=== PATIENT | male | born 1990 | race Caucasian/White ===

== ENCOUNTER 2022-06-06 05:00 | Emergency (ER) | payer OTHER ==
[~2022-06-06] VITALS: Ht 182.9 cm; Wt 90.7 kg
[2022-06-06 05:03] VITALS: BP 118/61
--- NOTE | 2022-06-06 05:06 | NUR ---
PT TAKEN TO BED 3
--- NOTE | 2022-06-06 05:30 | NUR ---
Patient A/Ox4, resting comfortably in bed, no c/o pain or s/s of discomfort, chest rise and fall symmetrical.
[2022-06-06] MEDS ORDERED: OFLO5SOL27 LEFT EAR (05:33)
[2022-06-06] MEDS ORDERED: NAPR-54 PO (05:33)
[2022-06-06 05:47] VITALS: BP 128/76
== END 2022-06-06 05:51 | disposition home or self-care (01) ==
LOC: MED 05:00
DX: H60.502 Unspecified acute noninfective otitis externa, left ear (principal); F17.210 Nicotine dependence, cigarettes, uncomplicated
CPT/HCPCS: 99283

== ENCOUNTER 2022-12-29 15:33 | Emergency (ER) | payer OTHER ==
[~2022-12-29] VITALS: Ht 182.9 cm; Wt 94.8 kg
[~2022-12-29 15:33] MED LIST: NAPR-54 PO; OFLO5SOL27 LEFT EAR
[2022-12-29 15:37] VITALS: BP 122/85
--- NOTE | 2022-12-29 15:41 | NUR ---
PT AMBULATED TO BED 7
--- NOTE | 2022-12-29 15:45 | NUR ---
MD ESPINOZA AT BEDSIDE FOR EVALUATION
--- NOTE | 2022-12-29 15:58 | NUR ---
32YO MALE PT C/O PRESSURED ABD PAIN AND DIARRHEA+blood X1WEEK. REPORTS SUDDEN INTERMITTENT DARK AND BRIGHT RED STOOL. STATES PRESSURE RELIEF AFTER HAVING BOWEL MOVEMENT. ABD NON TENDER OR DISTENDED. DENIES RECENT CHANGE IN DIET, N/V , FEVER, CHILLS OR RELIEF AFTER PEPCID. PT AAOX4, HOB POSITIONED PER COMFORT. HX: DENIES NKA
--- NOTE | 2022-12-29 16:21 | NUR ---
pt ambulated to restroom
--- NOTE | 2022-12-29 16:25 | NUR ---
pt ambulated back to room
[2022-12-29 16:52] LABS: BASOPHILS % (AUTO) 0.3 % (0.0-2.0); EOSINOPHILS # (AUTO) 0.5 K/uL (0-0.4); EOSINOPHILS % (AUTO) 3.9 % (0.0-4.0); HEMATOCRIT 42.3 % (36-52); HEMOGLOBIN 14.4 g/dL (12.0-18.0); LYMPHOCYTES # (AUTO) 3.2 K/uL (2.0-11.5); LYMPHOCYTES % (AUTO) 25.5 % (20.5-51.1); MEAN CORPUSCULAR HEMOGLOBIN 30 pg (27-31); MEAN CORPUSCULAR HGB CONC 34 g/dL (33-37); MEAN CORPUSCULAR VOLUME 86.6 fL (80-94); MONOCYTES # (AUTO) 1.8 K/uL (0.8-1.0); MONOCYTES % (AUTO) 14.4 % (1.7-9.3); NEUTROPHILS # (AUTO) 7.1 K/uL (1.8-7.7); NEUTROPHILS % (AUTO) 55.9 % (42.2-75.2); PLATELET COUNT (AUTO) 422 K/uL (140-450); RED BLOOD CELL COUNT(AUTO) 4.89 MIL/uL (4.20-6.10); RED CELL DISTRIBUTION WIDTH 13.4 % (11.6-13.7); WHITE BLOOD COUNT (AUTO) 12.7 K/uL (4.8-10.8)
[2022-12-29 17:00] LABS: ANION GAP 13.5 (8-16); CARBON DIOXIDE 25.2 mmol/L (21-32); CREATININE 1.2 mg/dL (0.6-1.3); POTASSIUM 3.7 mmol/L (3.5-5.1)
[2022-12-29 17:37] VITALS: BP 126/88
--- NOTE | 2022-12-29 17:37 | NUR ---
Patient discharged with v/s stable. Written and verbal after care instructions FOR DIARRHEA given and explained. Patient verbalized understanding. Ambulatory with steady gait. All questions addressed prior to discharge. Advised to follow up with PMD.
== END 2022-12-29 17:37 | disposition home or self-care (01) ==
LOC: MED 15:33
DX: R19.7 Diarrhea, unspecified (principal); Z79.899 Other long term (current) drug therapy
CPT/HCPCS: 36415; 80048; 85025; 99283

== ENCOUNTER 2023-01-21 11:11 | Emergency (ER) | payer OTHER ==
[~2023-01-21] VITALS: Ht 182.9 cm; Wt 93.0 kg
[2023-01-21 11:21] VITALS: BP 135/102
--- NOTE | 2023-01-21 11:29 | NUR ---
PT WALKED OUT OF LOBBY AT THIS TIME, DID NOT NOTIFY STAFF
[2023-01-21] MEDS ORDERED: CIPR500T4 PO (12:25)
[2023-01-21] MEDS ORDERED: IMO2 PO (12:25)
--- NOTE | 2023-01-21 12:59 | NUR ---
PT CALLED IN AND OUTSIDE OF LOBBY. NO ANSWER
[2023-01-21 13:23] VITALS: BP 131/74
--- NOTE | 2023-01-21 13:23 | NUR ---
Patient discharged with v/s stable. Written and verbal after care instructions ABOUT VIRAL GASTROENTERITIS given and explained. Patient alert, oriented and verbalized understanding of instructions. Ambulatory with steady gait. All questions addressed prior to discharge. ID band removed. Patient advised to follow up with PMD. Rx of CIPRO AND LOPERAMIDE given. Patient educated on indication of medication including possible reaction and side effects. Opportunity to ask questions provided and answered.
== END 2023-01-21 13:23 | disposition home or self-care (01) ==
LOC: MED 11:11
DX: A09 Infectious gastroenteritis and colitis, unspecified (principal); Z79.899 Other long term (current) drug therapy
CPT/HCPCS: 99283

== ENCOUNTER 2023-12-04 15:08 | Emergency (ER) | payer MEDICAID, OTHER ==
[~2023-12-04] VITALS: Ht 182.9 cm; Wt 79.4 kg
[~2023-12-04 15:08] MED LIST changes: +CIPR500T4 PO; +IMO2 PO
[2023-12-04 15:11] VITALS: BP 126/94; PULSE 98; RESP 18; TEMP 98; O2SAT 98
[2023-12-04] MEDS: LOPERAMIDE 2 MG CAP PO ONE (15:57)
[2023-12-04] MEDS: DICYCLOMINE HCL LIQUID 10 MG/5 ML UDC PO ONE (16:00)
[2023-12-04] MEDS: KETOROLAC 30 MG/ML VIAL IM ONE (16:08)
[2023-12-04] MEDS: FAMOTIDINE 20 MG TAB PO ONE (16:08)
[2023-12-04 17:24] LABS: BASOPHILS # (AUTO) 0.1 K/uL (0.00-0.22); BASOPHILS % (AUTO) 0.4 % (0.0-2.0); EOSINOPHILS % (AUTO) 6.7 % (0.0-4.0); HEMATOCRIT 37.6 % (36-52); HEMOGLOBIN 12.6 g/dL (12.0-18.0); LYMPHOCYTES # (AUTO) 3.3 K/uL (2.0-11.5); LYMPHOCYTES % (AUTO) 22.3 % (20.5-51.1); MEAN CORPUSCULAR HEMOGLOBIN 29 pg (27-31); MEAN CORPUSCULAR HGB CONC 34 g/dL (33-37); MEAN CORPUSCULAR VOLUME 87.3 fL (80-94); MONOCYTES # (AUTO) 1.6 K/uL (0.8-1.0); MONOCYTES % (AUTO) 10.5 % (1.7-9.3); NEUTROPHILS % (AUTO) 60.1 % (42.2-75.2); PLATELET COUNT (AUTO) 622 K/uL (140-450); RED CELL DISTRIBUTION WIDTH 13.8 % (11.6-13.7); WHITE BLOOD COUNT (AUTO) 14.9 K/uL (4.8-10.8)
[2023-12-04 17:37] LABS: ANION GAP 10.6 (8-16); CALCIUM 8.2 mg/dL (8.5-10.1); CARBON DIOXIDE 29.3 mmol/L (21-32); CREATININE 0.8 mg/dL (0.6-1.3); POTASSIUM 3.9 mmol/L (3.5-5.1)
[2023-12-04 17:50] LABS: ALBUMIN 1.9 g/dL (3.4-5.0); TOTAL BILIRUBIN 0.1 mg/dL (0.0-1.0); TOTAL PROTEIN, SERUM 6.1 g/dL (6.4-8.2)
[2023-12-04] MEDS ORDERED: LOPE2TAB42 PO (18:00)
[2023-12-04] MEDS ORDERED: BEN10 PO (18:01)
[2023-12-04 18:11] VITALS: BP 114/63; PULSE 85; RESP 18; TEMP 97.9; O2SAT 100
== END 2023-12-04 18:11 | disposition home or self-care (01) ==
LOC: MED 15:08
DX: K92.2 Gastrointestinal hemorrhage, unspecified (principal); R19.7 Diarrhea, unspecified; Z79.899 Other long term (current) drug therapy
CPT/HCPCS: 36415; 80048; 80076; 85025; 96372; 99284; J1885

== ENCOUNTER 2024-01-17 12:59 | Emergency (ER) | payer MEDICAID ==
[~2024-01-17] VITALS: Ht 180.3 cm; Wt 79.8 kg
[~2024-01-17 12:59] MED LIST changes: +BEN10 PO; +LOPE2TAB42 PO; +NAPR-337 PO; -NAPR-54 PO
[2024-01-17 13:15] VITALS: BP 138/79; PULSE 98; RESP 17; TEMP 97.6; O2SAT 99
[2024-01-17] MEDS ORDERED: CEPH-588 PO (13:40)
[2024-01-17 13:52] VITALS: BP 138/79; PULSE 98; RESP 17; TEMP 97.6; O2SAT 99
== END 2024-01-17 13:52 | disposition home or self-care (01) ==
LOC: MED 12:59
DX: S81.031A Puncture wound without foreign body, right knee, initial encounter (principal); L03.115 Cellulitis of right lower limb; W57.XXXA Bitten or stung by nonvenomous insect and other nonvenomous arthropods, initial encounter; Y93.89 Activity, other specified; Y92.89 Other specified places as the place of occurrence of the external cause; Y99.8 Other external cause status
CPT/HCPCS: 99283

== ENCOUNTER 2024-04-08 20:36 | Emergency (ER) | payer MEDICAID, OTHER ==
[~2024-04-08] VITALS: Ht 182.9 cm; Wt 81.6 kg
[~2024-04-08 20:36] MED LIST changes: +CEPH-588 PO
[2024-04-08 20:40] VITALS: BP 138/87; PULSE 88; RESP 16; TEMP 97.2; O2SAT 98
== END 2024-04-08 21:26 ==
LOC: MED 20:36
DX: S09.90XA Unspecified injury of head, initial encounter (principal); Z79.1 Long term (current) use of non-steroidal anti-inflammatories (NSAID); Z79.2 Long term (current) use of antibiotics; Z79.899 Other long term (current) drug therapy; W50.0XXA Accidental hit or strike by another person, initial encounter; Y93.89 Activity, other specified; Y92.89 Other specified places as the place of occurrence of the external cause; Y99.8 Other external cause status
CPT/HCPCS: 99283